=== PATIENT | female | born 1990 | race Caucasian/White ===

== ENCOUNTER 2020-11-13 05:42 | Emergency (ER) | payer BC ==
[2020-11-13] MEDS ORDERED: Ondansetron PF 4 MG/2 ML Vial ONE (06:29)
[2020-11-13 06:50] LABS: Hemoglobin 16.8 g/dL (12.0-16.0); Mean Corpuscular HGB CONC 33.5 g/dL (32.0-36.0); Mean Corpuscular Hemoglobin 29.4 pg (27.0-31.0); Mean Corpuscular Volume 87.6 fL (78.0-98.0); Mean Platelet Volume 9.6 fL (7.4-10.4); Platelet Count 224 thou/uL (130-400); RBC Distribution Width 11.2 % (11.5-14.5); Red Blood Cell (RBC) Count 5.72 mill/uL (4.20-5.40); White Blood Cell (WBC) Count 8.4 thou/uL (4.8-10.8)
[2020-11-13 07:00] LABS: ALT (SGPT) 49 U/L (8-55); AST (SGOT) 32 U/L (5-34); Albumin 4.1 g/dL (3.5-5.0); Alkaline Phosphatase 59 U/L (40-110); Anion Gap 19 mmol/L (10-20); BUN (Urea Nitrogen) 13 mg/dL (7.0-18.7); Bilirubin, Total 0.4 mg/dL (0.2-1.2); Calc. Creatinine Clearance 0 mL/min (70-130); Calcium 9.1 mg/dL (7.8-10.44); Carbon Dioxide 19 mmol/L (22-29); Chloride 103 mmol/L (98-107); Globulin 2.9 g/dL (2.4-3.5); Glucose 373 mg/dL (70-105); Potassium 4.6 mmol/L (3.5-5.1); Sodium 136 mmol/L (136-145)
[2020-11-13 07:03] LABS: Base Excess-Venous -0.9 mmol/L (-2.0 to 3.0); Bicarbonate (HCO3v) 23.4 mmol/L (22.0-28.0); CO2 Tension (PvCO2) 37.2 mmHg (42.0-51.0); Calcium, Ionized 1.14 mmol/L (1.15-1.33); Chloride 102 mmol/L (98-107); Hemoglobin - Calc 15.8 g/dL (12.0-16.0); Potassium 4.3 mmol/L (3.5-5.1); Sodium 137 mmol/L (138-145); T. Carbon Dioxide 24.6 mmol/L (22.0-28.0); vO2 Saturation-calc 93.4 % (60.0-85.0)
[2020-11-13 07:05] LABS: Bilirubin Negative (Negative); Blood, Urine Trace (Negative); Clarity Clear (Clear); Glucose, Urine (Dipstick) >=1000 mg/dL (Negative); Ketone, Urine Negative (Negative); Leukocyte Negative (Negative); Nitrite Negative (Negative); Protein, Urine (Dipstick) Negative (Neg-Trace); Specific Gravity, Urine 1.015 (1.005-1.030); Urobilinogen 0.2 mg/dL (Less than 2)
[2020-11-13 07:08] LABS: RBC/HPF 0-3 HPF (0-3); Squamous Epithelial 0-3 HPF (0-3); WBC/HPF None Seen HPF (0-3)
[2020-11-13 07:09] LABS: Bacteria/HPF None Seen HPF (None Seen)
[2020-11-13 07:12] LABS: Magnesium 1.8 mg/dL (1.6-2.6)
[2020-11-13 07:21] LABS: %Basophils 0.8 % (0.0-1.0); %Eosinophils 3.9 % (0.0-10.0); %Lymphocytes 36.3 % (21.0-51.0); %Monocytes 5.8 % (0.0-10.0); %Neutrophils 53.2 % (42.0-75.0); Band 1 % (5-11); Eosinophils 4 % (0-10); Lymphocytes 41 % (21-51); MDiff Complete? YES; Monocytes 3 % (0-10); Neutrophil 51 % (42-75); Platelet Morphology Comment Appears Adequate; RBC Morphology Normal
[2020-11-13] MEDS ORDERED: Insulin Regular 300 UNITS/3 ML VIAL ONE (08:20)
== END 2020-11-13 09:14 | disposition home or self-care (01) ==
LOC: BURERS 05:42
DX: E11.65 Type 2 diabetes mellitus with hyperglycemia (principal); R11.0 Nausea; F17.210 Nicotine dependence, cigarettes, uncomplicated
CPT/HCPCS: 36416; 80053; 81003; 81015; 82330; 82803; 83690; 83735; 85025; 96374; 96375; J1815; J2405

== ENCOUNTER 2023-05-22 15:54 | Emergency (ER) | payer OTHER, SELFPAY ==
[2023-05-22 17:16] LABS: SARS-CoV-2 NAA Rapid Test Not Detected (NotDetected)
== END 2023-05-22 17:43 | disposition home or self-care (01) ==
LOC: BURERS 15:54
DX: J10.1 Influenza due to other identified influenza virus with other respiratory manifestations (principal); Z20.822 Contact with and (suspected) exposure to COVID-19; E11.9 Type 2 diabetes mellitus without complications; Z87.891 Personal history of nicotine dependence
CPT/HCPCS: 87081; 87430; 99283